=== PATIENT | female | born 1985 | race Caucasian/White ===

== ENCOUNTER 2016-12-10 18:42 | Emergency (ER) | payer BC ==
[2016-12-10 18:51] VITALS: BP 120/81
[2016-12-10] MEDS ORDERED: Penicillin VK TAB* 250 MG PO ONE (19:31)
--- NOTE | 2016-12-10 20:46 | UC ---
UC Dental HPI - HPI Summary HPI Summary: 31 yo female with worsening dental pain x 1 1 /2 weeks no with bad taste in her month and swelling no fever - History of Current Complaint Chief Complaint: UCDentalProblem Stated Complaint: DENTAL Time Seen by Provider: 12/10/16 19:15 Hx Obtained From: Patient Hx Last Menstrual Period: 11/05/16 Onset/Duration: Gradual Onset, Lasting Days Pain Intensity: 7 Pain Scale Used: 0-10 Numeric Aggravating: Heat, Cold, Chewing Alleviating: OTC Meds - initially motrin helped Related History: Discharge, Swelling - Allergies/Home Medications Allergies/Adverse Reactions: Allergies Allergy/AdvReac Type Severity Reaction Status Date / Time Tramadol [From Ultram] Allergy Intermediate Hives Verified 12/10/16 18:52 Acetaminophen [From Lortab] AdvReac Intermediate GI Verified 12/10/16 18:52 Hydrocodone [From Lortab] AdvReac Intermediate GI Verified 12/10/16 18:52 Home Medications: Home Medications Control Pill 1 tab DAILY 12/10/16 [History Confirmed 12/10/16] Ibuprofen TAB* [Advil TAB*] 800 mg PO Q6H PRN 12/10/16 [History Confirmed ] PMH/Surg Hx/FS Hx/Imm Hx Previously Healthy: Yes - Surgical History Surgical History: Yes Surgery Procedure, Year, and Place: tonsilectomy,lsp laminectomy 2008, - Family History Known Family History: Positive: Cardiac Disease, Hypertension, Diabetes Family History: dad renal CA - Social History Alcohol Use: Occasionally Substance Use Type: None Smoking Status (MU): Light Every Day Tobacco Smoker Type: Cigarettes Amount Used/How Often: 5-7 cig. daily; starting Chantix Review of Systems Constitutional: Negative Skin: Negative Eyes: Negative ENT: Dental Pain Respiratory: Negative Cardiovascular: Negative Gastrointestinal: Negative Genitourinary: Negative Motor: Negative Neurovascular: Negative Musculoskeletal: Negative Neurological: Negative Psychological: Negative All Other Systems Reviewed And Are Negative: Yes Physical Exam Triage Information Reviewed: Yes Appearance: Well-Appearing, No Pain Distress, Well-Nourished Vital Signs: Initial Vital Signs Temp 98.5 F 12/10/16 18:47 Pulse 84 12/10/16 18:47 Resp 16 12/10/16 18:47 BP 120/81 12/10/16 18:47 Pulse Ox 100 12/10/16 18:47 Eyes: Positive: Conjunctiva Clear ENT Exam: Normal Dental: Positive: Percussion Tenderness @ Neck: Positive: Supple, Nontender Respiratory: Positive: Lungs clear, Normal breath sounds, No respiratory distress, No accessory muscle use Cardiovascular: Positive: RRR, No Murmur Psychological Exam: Normal Skin Exam: Normal Dental Complaint Course/Dx - Differential Dx/Diagnosis Provider Diagnoses: acute dentalgia Discharge - Discharge Plan Condition: Stable Disposition: HOME Prescriptions: HYDROcodone/ACETAMIN 5-325 MG* [[place] 5-325 TAB*] 1 tab PO Q4H PRN #15 tab MDD 6 PRN Reason: Pain - Severe Penicillin VK 500 MG TAB(NF) [Penicillin VK 500 mg Tab] 500 mg PO QID #28 tab Patient Education Materials: Toothache (ED) Forms: *Work Release Referrals: Karen Gandhi MD [Primary Care Provider] - Additional Instructions: you may continue ibuprofen TO ER FOR: worsening pain fever marked swelling if not better in 48 hours see dentist first available appt Images Dental: 1 - swelling 2 - root canal post
== END 2016-12-10 19:43 | disposition home or self-care (01) ==
LOC: UCCORT 18:42
DX: K08.89 Other specified disorders of teeth and supporting structures (principal); Z72.0 Tobacco use
CPT/HCPCS: 99212; A9270-GY; G0463

== ENCOUNTER 2017-04-20 17:59 | Emergency (ER) | payer BC ==
--- NOTE | 2017-04-20 19:01 | UC ---
Back Pain HPI - HPI Summary HPI Summary: 32 year old female presents with complains of right shoulder pain after hitting a tree with his right shoulder. - History of Current Complaint Stated Complaint: BACK PAIN Time Seen by Provider: 04/20/17 19:01 Hx Obtained From: Patient Hx Last Menstrual Period: 11/05/16 Onset/Duration: Sudden Onset Timing: Constant Severity Initially: Moderate Severity Currently: Moderate Pain Scale Used: 0-10 Numeric - 5 Character: Sharp Aggravating Factor(s): Movement, Lifting Alleviating Factor(s): Rest Associated Signs And Symptoms: Positive: Negative - Allergies/Home Medications Allergies/Adverse Reactions: Allergies Allergy/AdvReac Type Severity Reaction Status Date / Time Tramadol [From Ultram] Allergy Intermediate Hives Verified 04/20/17 19:27 Acetaminophen [From Lortab] AdvReac Intermediate GI Verified 04/20/17 19:27 Hydrocodone [From Lortab] AdvReac Intermediate GI Verified 04/20/17 19:27 PMH/Surg Hx/FS Hx/Imm Hx Previously Healthy: Yes - Surgical History Surgical History: Yes Surgery Procedure, Year, and Place: tonsilectomy,lsp laminectomy 2008, - Family History Known Family History: Positive: Cardiac Disease, Hypertension, Diabetes Family History: dad renal CA - Social History Alcohol Use: Occasionally Substance Use Type: None Smoking Status (MU): Light Every Day Tobacco Smoker Type: Cigarettes Amount Used/How Often: 5-7 cig. daily; starting Chantix Review of Systems Constitutional: Negative Skin: Negative Eyes: Negative ENT: Negative Respiratory: Negative Cardiovascular: Negative Gastrointestinal: Negative Genitourinary: Negative Motor: Negative Neurovascular: Negative Musculoskeletal: Other: - lower back pain Neurological: Negative Psychological: Negative All Other Systems Reviewed And Are Negative: No Physical Exam Triage Information Reviewed: Yes Vital Signs Reviewed: Yes Eye Exam: Normal ENT Exam: Normal Dental Exam: Normal Neck exam: Normal Neck: Positive: 1 Respiratory Exam: Normal Cardiovascular Exam: Normal Abdominal Exam: Normal Musculoskeletal: Positive: Other: - lower back pain Neurological Exam: Normal Psychological Exam: Normal Skin Exam: Normal Back Pain Course/Dx - Differential Dx/Diagnosis Provider Diagnoses: lower paraspinal muscle spasm Discharge - Discharge Plan Condition: Stable Disposition: HOME Prescriptions: Meloxicam(NF) [Mobic(NF)] 7.5 mg PO BID #30 tab Methocarbamol TAB* [Robaxin 500 MG TAB*] 500 mg PO TID PRN #30 tab PRN Reason: Spasms - Back Patient Education Materials: Acute Low Back Pain (ED) Referrals: Akin Batista [Physical Therapist] - Karen Gandhi MD [Primary Care Provider] -
[2017-04-20 19:58] VITALS: BP 134/94
== END 2017-04-20 19:52 | disposition home or self-care (01) ==
LOC: UCCORT 17:59
DX: M62.838 Other muscle spasm (principal); M25.511 Pain in right shoulder; M54.5 Low back pain; Z88.6 Allergy status to analgesic agent; Z88.5 Allergy status to narcotic agent; F17.210 Nicotine dependence, cigarettes, uncomplicated
CPT/HCPCS: 99212; G0463